=== PATIENT | female | born 1955 | race Caucasian/White ===

== ENCOUNTER 2025-04-13 09:30 | Outpatient (AMB) | payer OTHER, SELFPAY ==
--- OUTSIDE RECORDS SUMMARY | 2025-04-13 09:52 | XMS_ITS | Clinical Summary ---
Author Organization [facility] Address [address] [place] [address] Care Team Providers Care Endoscopic Technician Name Role Phone Unavailable Primary Care Provider Unavailabl e Medications No known medications Active Problems No known active problems Social History Tobacco Use Types Packs/Day Years Used Date Smoking Tobacco: Every Day Sex and Gender Information Value Date Recorded Sex Assigned at Not on file Gender Identity Not on file Sexual Orientation Not on file Plan of Treatment Health Maintenance Due Date Last Done Comments Hepatitis C Screening 1955 COVID-19 Vaccine (#1) 06/17/1956 Pneumococcal Vaccine (1 of 2 - PCV) 1962 Depression Screening 1968 Preventative Health Evaluation 1974 DTap / Tdap / Td (1 - Tdap) 12/16/1975 Colon Cancer Screening (Colonoscopy) 2001 Breast Cancer Screening (Mammogram) 2006 Shingrix-Zoster Vaccine (1 of 2) 2006 Fall Risk Assessment 2021 Osteoporosis Screening (DEXA Scan) 2021 Influenza Vaccine (Season Ended) 2025 RSV Adult > 60+ Yrs or Pregn ant (1 - 1-dose 75+ series) 12/16/2031 Hepatitis B Vaccines Aged Out No long er eligible based on patient's age to complete this topic RSV Ped < 20 months Aged Out No longe r eligible based on patient's age to complete this topic
[2025-04-13 10:25] VITALS: BMI 22.6
--- NOTE | 2025-04-13 10:25 | A.OFFVIS_ITS ---
VS Expanded 04/13/25 10:25 04/13/25 10:48 Height 5 ft 6 in 5 ft 6 in Weight 139 lb 15.896 oz 140 lb BMI 22.6 22.6 Intake Visit Reasons: Diverticulosis Nutrition Presentation Details: Pt presents for MNT for diverticulosis Pt reports her older sister makes the meals at home Pt has hx of emphysema /osteoporosis PA: walking 2 miles 1-2 x/wk etoh denies smoke: 4-6 cigarette/day food frequency fruits: 2-3 x/wk dairy/yogurt every other day , ok with lactose free dairy fish : 1/wk whole grain foods - reports mainly bread Pt reports not fond of cooking meals but likes to bake beverages 8 oz of water 8-12 /day was taking MVI centrum silver but stopped d/t upset stomach Reports hx of interception surgery around 2015 or 2017 FON-Ddobbrv-[facility] Equation Height: 5 ft 6 in Weight: 140 lb Resting Metabolic Rate: 1186.58 Calculated Activity Level: Mild Activity Calories Needed to Maintain Weight: 1631.55 Diagnosis Nutrition problem #1: food nutri know defi As related to (etiology) #1: diagnosis As evidenced by (sign/symptom) #1: knowledge deficit of diet (food/recipe modifications with fiber ) Assessment & Plan Assessment & Plan (1) Diverticulosis: Code(s): K57.90 - Diverticulosis of intestine, part unspecified, without perforation or abscess without bleeding Category: Medical Plan: Wt: 64 Kg ( 04/08 ) Est kcal needs as per MSJ: 1600 (40% carb, 30% protein/fat) Est fluid needs as per 25-30 ml/d: 2000 Est prot per day as per 1 g/kg bw: 60 -66 Recommend fiber intake : 8-10 g per day and gradually increase to 25-28 g per day for women and 35-38 g for men or as tolerated Recommend sodium intake per day : less than 1500 mg less than 2000 mg Educated patient on: ( R = reviewed V = verbalizes understanding N/R = needs review N/A = not applicable * Food sources of carbohydrate, adequate serving sizes and its role in various health conditions: R V N/R * Differences between complex carbohydrates a simple carbohydrates, role of fiber in diet, gradually increasing fiber in the diet: R * Lean protein sources of foods: R * Differences between types of fats and role in diet (mono on saturated fat fatty acids, saturated fatty acids, trans fats): R V N/R * Food sources of sodium in salt and healthy modifications for heart health in kidney health: R V R/V * Vitamins and minerals: R V N/R * Healthy plate method concept: R V * Physical activity: Benefits a precaution: R V * Patient Instructions: have oatmeal 2 times a week (try overnight oats) switch to ground flaxseeds vs seeds and add 1 tsp per day a meal and gradually increase to 1 tbsp or as tolerated Keep hydrated, remember to increase fluids/water and you increase in riber to prevent constipation Coding Level of Care Code Nutr Indiv Intake (42169) Diagnoses Diverticulosis K57.90 Time Spent (min) 30
[2025-04-13 10:48] VITALS: BMI 22.6
== END 2025-04-13 11:05 | disposition home or self-care (01) ==
LOC: HO.ENCR 09:31
PROVIDERS: PCP Internal Medicine; Visit Provider Dietitian, Registered
DX: K57.90 Diverticulosis of intestine, part unspecified, without perforation or abscess without bleeding (principal)

== ENCOUNTER → 2025-04-13 09:30 | Outpatient (BNVA) | payer OTHER, SELFPAY | PROVIDERS: PCP Internal Medicine; Visit Provider Dietitian, Registered | DX: Z71.3 Dietary counseling and surveillance (principal); K57.90 Diverticulosis of intestine, part unspecified, without perforation or abscess without bleeding | CPT/HCPCS: 97802 ==